=== PATIENT | female | born 1930 | race Caucasian/White ===

== ENCOUNTER 2019-02-27 10:00 | Inpatient (IN) ==
[2019-02-27] MEDS ORDERED: NS 500 ML IV ONE ×3 (10:56→16:44)
[2019-02-27] MEDS ORDERED: ZOFRAN IV ONE (10:58)
--- NOTE | 2019-02-27 11:05 | PROVIDER DOCUMENTATION ---
This chart was entered by Vicky Camacho Scribe, acting as scribe for Jennifer Wilkins MD. HPI-General Adult - General Chief Complaint: Diarrhea Stated Complaint: WEAKNESS, DIARRHEA Time Seen by Provider: 02/27/19 10:53 Source: patient Allergies/Adverse Reactions: Patient Allergies Allergy/AdvReac Type Severity Reaction Status Date / Time No Known Allergies Allergy Unverified 02/27/19 10:02 Home Medications: Home Medication List Medication Instructions Recorded Confirmed Last Taken Type Amlodipine Besylate [Norvasc] 5 mg PO DAILY 07/30/16 02/27/19 07/29/16 History Levothyroxine [Synthroid] 75 microgm PO DAILY 07/30/16 02/27/19 07/29/16 History Albuterol 2.5MG/Ipratrop 0.5MG 3 ml INH RTQ4H PRN #0 neb 08/04/16 02/27/19 Unknown Rx [Duoneb (A & A)] Lisinopril/Hydrochlorothiazide 1 tab DAILY 05/08/18 02/27/19 Unknown History [Lisinopril-Hctz 20-25 mg Tab] Acyclovir 5% Ointment [Zovirax 1 applic TOP 4XDAY 02/27/19 02/27/19 Unknown History Ointment] Bacillus Coagulans/Inulin 1 cap PO DAILY 02/27/19 02/27/19 Unknown History [Probiotic Formula Capsule] Furosemide 1 tab PO DAILY PRN 02/27/19 02/27/19 Unknown History Levofloxacin [Levaquin] 1 tab PO DAILY 02/27/19 02/27/19 Unknown History Menthol/Zinc Oxide Ointment 1 applic TOP HS 02/27/19 02/27/19 Unknown History [Calmoseptine Ointment] Potassium Chloride 1 tab PO DAILY PRN 02/27/19 02/27/19 Unknown History - History of Present Illness -Gen Adult Nature of Presenting Problems: Patient is a 88 year old female who presents to the ED via EMS with diarrhea, nausea, abdominal cramping and weakness. States symptoms have gradually worsened over a month. 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 Denies vomiting. States recently taking Levaquin. Denies urinary symptoms. Location of Pain/Injury: reports: abdomen Pain Radiation: reports: no radiation Quality of Pain: reports: cramping Severity: reports: mild Onset/Duration: reports: other (1 month) Timing: reports: still present, getting worse Associated Symptoms: reports: diarrhea, nausea, weakness Similar Symptoms Previously?: Yes Recently seen or treated by another doctor?: Yes Review of Systems - Adult - REVIEW OF SYSTEMS - ADULT Constitutional: reports: no symptoms reported. denies: chills, fever, fatique Eyes: reports: no symptoms reported Ears, Nose, Mouth & Throat: reports: no symptoms reported Cardiovascular: reports: no symptoms reported Respiratory: reports: no symptoms reported Gastrointestinal: reports: see HPI, abdominal pain, diarrhea, nausea. denies: vomiting Genitourinary: reports: no symptoms reported Musculoskeletal: reports: see HPI, muscle weakness. denies: back pain, neck pain Integumentary: reports: no symptoms reported Neurological: reports: no symptoms reported Psychiatric: reports: no symptoms reported Endocrine: reports: no symptoms reported Hematologic/Lymphatic: reports: no symptoms reported Allergic/Immunologic: reports: no symptoms reported All Other Systems: Reviewed and Negative Past History - Adult - PAST MEDICAL HISTORY-ADULT Review of Records: reports: Old Records Reviewed, Social history reviewed & non- contributory. 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 negative: lethargic - HEAD, EARS, NOSE, MOUTH & THROAT HENMT: normocephalic/atraumatic, other (dry mucous membranes). negative: angioedema - RESPIRATORY Respiratory: chest non-tender, lungs clear, normal breath sounds. negative: crackles - CARDIOVASCULAR Cardiovascular: normal peripheral pulses, regular rate, rhythm. negative: tachycardia - GASTROINTESTINAL (ABDOMEN) Abdominal Exam: normal bowel sounds, non tender, soft. negative: guarding, rigid - MUSCULOSKELETAL Extremity: normal inspection. negative: deformity, erythema - SKIN Integumentary: normal turgor, warm/dry, pallor. negative: diaphoresis, rash - PSYCHIATRIC Psych/Mental Status: normal mood/affect, oriented x 3. negative: anxious Progress - PLAN OF CARE/RESULTS Progress/Plan/Lab Results: Vital Signs - 8 hr 02/27/19 10:41 Temperature 93.5 F L Result Diagrams: 02/27/19 11:07 02/27/19 11:10 - REASSESSMENT Reassessment #1 Time Reassessed: 16:01 Status: worsening Reassessment Comment: bp dropped to 70 systolic and is p to 94 systolic after 500 bolus - XRAY 1 XRAY Study: Chest Impression: See EMR Report ( EXAM: CHEST-PORTABLE 02/27/2019 HISTORY: cough TECHNIQUE: AP portable at 1223 COMMENT: There is elevation of the right hemidiaphragm which has not changed since 05/11/2018. There is apparently less fluid in the costophrenic sulcus on the right than on the previous study. The left lower lobe is also clearer than it was. IMPRESSION: No evidence of acute disease. Electronically signed by Gennaro House 02/27/2019 12:12 PM 02/27/19 1212 Interpreting Physician: Gennaro House MD Dictated Date/Time: 02/27/19 1211 cc: Jennifer Wilkins MD; None,PCP) - CONSULTS/PCP/HOSPITALIST Notification #1 *Consult/PCP/Hospitalist*: penot Time Discussed: 16:01 Consult Disposition: Admit Departure - Departure Date of Disposition Decision: 02/27/19 Time of Disposition Decision: 16:02 DIAGNOSIS: Sepsis associated hypotension Sepsis Qualifiers: Sepsis type: sepsis due to unspecified organism Sepsis acute organ dysfunction status: without acute organ dysfunction Qualified Code(s): A41.9 - Sepsis, unspecified organism Disposition: ADMITTED INPATIENT 09 Certified Medical Emergency: Emergent Condition: Fair Referrals and Follow-Ups: None,PCP [Primary Care Provider] - - Critical Care Note This patient required my direct & personal management of CC.: Yes Total Time (mins): 50 Critical Care Statement: This patient required my direct personal management to treat or rule out processes, the absence of which, could potentiallly result in sudden, clinically significant life or limb threatening deterioration. Attestation - Physician/ DESTINEE Attestation Patient care was provided by Advanced Practice Provider:: No The physician spent face to face time with patient:: Yes Advanced Practice Provider documentation review:: Supervising physician onsite and consulted in the evaluation and care of this patient. The physician did have a face to face encounter with the patient. This chart was documented by the indicated scribe, (Vicky Camacho Scribe) and acc urately reflects the services I performed and decisions made by me, Jennifer Wilkins MD, as attested by the provider's signature.
[2019-02-27 11:21] LABS: BASO# 0.02 X1000 (0.0-0.2); BASO% 0.2 % (0.0-0.8); EOS# 0.02 X1000 (0.0-0.7); EOS% 0.2 % (0.0-10.0); HEMATOCRIT 38.5 % (37.0-47.0); HEMOGLOBIN 13.1 g/dL (12.0-16.0); IMM GRAN# 0.38 X1000 (0.0-0.04); IMM GRAN% 3.5 % (0.0-0.5); LYMPH# 0.45 X1000 (1.2-3.4); LYMPH% 4.2 % (20.5-51.1); MCH 28.7 PG (27-31); MCV 84.4 FL (81-99); MONO# 0.87 X1000 (0.11-0.59); MONO% 8.1 % (1.7-9.3); MPV 10.2 FL (7.4-10.4); NEUT% 83.8 % (42.2-75.2); PLT 186 X1000 (130-400); RBC 4.56 XMIL (4.2-5.4); RDW 15.1 % (11.5-14.5); WBC 10.74 X1000 (4.8-10.8)
[2019-02-27 11:40] LABS: ESTIMATED GFR > 60
[2019-02-27 11:41] LABS: AGAP 11; ALBUMIN 3.4 g/dL (3.5-5.0); ALKALINE PHOSPHATASE 107 U/L (32-104); BUN 9 mg/dL (8-22); CALCIUM 8.6 mg/dL (8.8-10.2); CHLORIDE 89 mmol/L (98-107); COSMO 269; CREATININE 0.3 mg/dL (0.5-0.9); GLUCOSE 103 mg/dL (70-104); GOT 18 U/L (10-30); GPT 7 U/L (10-36); LIPASE 7 U/L (13-60); POTASSIUM 3.4 mmol/L (3.5-5.1); SODIUM 135 mmol/L (136-145); TCO2 36 mmol/L (25-35); TOTAL PROTEIN 5.5 g/dL (6.3-8.3)
--- NOTE | 2019-02-27 12:14 | Diag Imaging Result Doc PS360 ---
EXAM: CHEST-PORTABLE 02/27/2019 HISTORY: cough TECHNIQUE: AP portable at 1223 COMMENT: There is elevation of the right hemidiaphragm which has not changed since 05/11/2018. There is apparently less fluid in the costophrenic sulcus on the right than on the previous study. The left lower lobe is also clearer than it was. IMPRESSION: No evidence of acute disease. Electronically signed by Gennaro House 02/27/2019 12:12 PM
[2019-02-27] MEDS ORDERED: ALBUTEROL NEB INH ONE (15:28)
[2019-02-27] MEDS ORDERED: FLAGYL PO ONE (15:28)
[2019-02-27] MEDS ORDERED: FLAGYL ONE (15:49)
[2019-02-27] MEDS ORDERED: NS 500 ML ONE (16:40)
[2019-02-27 18:52] LABS: URINE SOURCE CATH
[2019-02-27 18:53] LABS: BILIRUBIN URINE NEGATIVE (NEGATIVE); BLOOD URINE NEGATIVE (NEGATIVE); CLARITY CLEAR (CLEAR); COLOR YELLOW; GLUCOSE URINE NEGATIVE (NEGATIVE); KETONE URINE 2+(Moderate) mg/dL (NEGATIVE); LEUKOCYTES URINE NEGATIVE (NEGATIVE); NITRITE URINE NEGATIVE (NEGATIVE); PH URINE 6.5; PROTEIN URINE TRACE mg/dL (NEGATIVE); SP GRAVITY URINE 1.015; URINE BACTERIA NEGATIVE /HFP; URINE EPITHELIAL CELLS <10 /HPF (<10); URINE RBC <10 /HPF (<10); URINE WBC <10 /HPF (<10); UROBILINOGEN URINE NORMAL
--- NOTE | 2019-02-27 19:33 | HISTORY AND PHYSICAL ---
PRIMARY CARE PHYSICIAN: Dr. Kristen Lovell CHIEF COMPLAINT: Nausea, abdominal cramping, diarrhea and weakness that have progressively worsened over the past month. She was placed on Levaquin by her primary care physician during this month's time but the symptoms have not improved. HISTORY OF PRESENTING ILLNESS: This is an 88-year-old female who presents to [facility] ER via EMS with complaints of abdominal cramping, diarrhea, nausea and weakness. States that these symptoms have gradually worsened over the last month. She is noted to be a quadriplegic due to having polio. She states that when she saw her primary care during this past month, she was placed on Levaquin but symptoms have not improved. When she arrived, she was noted to be hypothermic at 93.5. Placed on a Kristel Hugger. She was also noted to be hypotensive at the lowest point was 73/45. She has received two 500 mL boluses as we are trying to go with some gentle hydration as she has a history of congestive heart failure, but when I assessed her, she was still at 84/48. So, I am going to give her another 500 mL bolus of normal saline. White count is within normal limits at 10.74. Urinalysis was negative. Chest x-ray was negative. We are going to do a CT of the abdomen and pelvis with p.o. and IV contrast. She will be admitted to the intensive care unit for further evaluation and treatment. PAST MEDICAL HISTORY: Hypothyroidism, hypertension, hypokalemia, poliomyelitis, quadriplegia, congestive heart failure and atrial fibrillation PAST SURGICAL HISTORY: None. FAMILY HISTORY: Reviewed and noncontributory. SOCIAL HISTORY: She currently resides at [facility]. Denies any tobacco, alcohol or illicit drug use. ALLERGIES: She has no known drug allergies. HOME MEDICATIONS: We are going to hold all her medications at this time and will review and restart as the patient improves. LABORATORY DATA: Showed a white blood cell count of 10.74, hemoglobin 13.1, hematocrit 38.5, platelets 186,000. Sodium 135, potassium 3.4, chloride 89, CO2 36, BUN of 9, creatinine 0.3, glucose 103. Amylase 21, lipase 7, plasma lactate 0.7. Urinalysis was negative. Chest x-ray showed no evidence of acute disease. REVIEW OF SYSTEMS: She denied any fever, chills, blurred vision, dizziness, chest pain, coughing, shortness of breath. She has had some abdominal cramping, nausea. Denied any vomiting. She has had diarrhea and denied constipation. She had some generalized weakness. Denied any burning or hurting with urination. PHYSICAL EXAMINATION: VITAL SIGNS: On arrival, she had a temperature of 93.5 degrees, pulse 75, respirations 16, blood pressure 124/101. Her blood pressure is noted to have dropped to 73/45 at 3:30 p.m. and currently after receiving two 500 mL boluses of normal saline is at 84/48, so I have ordered another 500 mL bolus of normal saline. GENERAL: This is an 88-year-old female who is lying in the bed and answers questions appropriately. Daughter is also at bedside to help answer questions. HEENT: Normocephalic, atraumatic. Normal ENT inspection. Oropharynx and nares are clear. EYES: Pupils are equal, round, and reactive to light and accommodation. Extraocular movements are intact. NECK: Normal inspection. Normal range of motion. LUNGS: Clear to auscultation bilaterally with equal lung expansion. Chest wall movement. HEART: Regular rate and rhythm. No murmurs, rubs, or gallops. ABDOMEN: Soft, nontender, nondistended. Bowel sounds are present x4 quadrants. MUSCULOSKELETAL: She has 5/5 strength x4 extremities. NEUROLOGICAL: The cranial nerves 2-12 appear grossly intact. ASSESSMENT: 1. Sepsis. 2. Hypothermia. 3. Hypotension. 4. Diarrhea. PLAN: She will be admitted to the intensive care unit. Placed on a clear liquid diet. We are going to obtain a CT of the abdomen and pelvis with p.o. and IV contrast. She is currently receiving 500 mL bolus of normal saline. She has already received a total of 1000 mL. We are going to apply SCDs. Recheck CBC and BMP in the a.m. and she remains on a Kristel Hugger. Further orders after seen by attending and reviewing of the CT of the abdomen results. Dictated by HEATHER Bailon for Laci Carroll MD cc: HEATHER Bailon MD Marlin D. Gill, MD
[2019-02-27] MEDS ORDERED: ZOFRAN IV PRN (19:40)
--- NOTE | 2019-02-27 19:51 | HISTORY AND PHYSICAL ---
ADDENDUM: Chief complaint was diarrhea, weakness, intermittent hypotension. HISTORY: The patient has had diarrhea off and on for the last month. She has had treatment for diarrhea starting about 5 days ago with Levaquin. Did not improve. Today blood pressure has dropped low into the 70s and plan is to admit her for treatment. Her exam is really unremarkable. She has a kind of a colitis type picture, so the plan will be to get a CT and stool tests and continue to follow closely. She is at an assisted living. She also has polio and chronic weakness and functionally she is basically a quadriplegic, so we will continue to follow. This is a [id number] encounter note with Katelin Allen. cc: Laci Carroll MD
[2019-02-27] MEDS: SODIUM CHLORIDE 0.9% INJ SCH (20:12)
[2019-02-27] MEDS: FLAGYL 500 MG/NS 500 MG/100 ML IVPB IV SCH (20:12)
[2019-02-27] MEDS: PROTONIX IV SCH (20:12)
[2019-02-27] MEDS: NS 1,000 ML IV SCH (20:13)
[2019-02-27] MEDS ORDERED: CALMOSEPTINE OINTMENT TOP PRN (20:25)
[2019-02-27 20:33] LABS: OCCULT BLOOD 1 NEGATIVE (NEGATIVE)
[2019-02-27] MEDS: VANCOCIN PO SCH (20:47)
--- NOTE | 2019-02-27 20:57 | Diag Imaging Result Doc PS360 ---
EXAM: CT ABD/PELVIS W/PO AND IV CON 02/27/2019 HISTORY: YODIT wilde TECHNIQUE: This exam was performed using automated exposure control, adjustment of mA or kV according to patient size, and/or use of iterative reconstruction technique. COMMENT: There are no previous abdominal studies available for comparison. Comparison is made with the previous thoracic CT of 07/31/2016 where possible. There are some apparent atelectatic changes in the costophrenic sulci which were not apparently present previously. There are cholesterol stones in the gallbladder which were demonstrated on the previous study. No evidence of acute cholecystitis is present. There are bilateral renal cysts. There is no evidence of bowel obstruction. There is a fair amount of stool in the colon. There are scattered diverticula. The aorta is not distended. The spleen is not enlarged. The liver is stable in appearance. The adrenal glands are not enlarged. 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 There is no evidence of appendicitis. There is mucosal thickening and increased mucosal enhancement in the distal sigmoid and descending colon, and rectum. There is diverticulosis in the sigmoid colon without evidence of acute diverticulitis. There is a Ulrich catheter in the bladder. There is no evidence of abscess. There is a small amount of free fluid in the pelvis. IMPRESSION: Colitis. This appears to be largely confined to the left colon, although there may be skip areas. Electronically signed by Gennaro House 02/27/2019 8:55 PM
[2019-02-27] MEDS ORDERED: DOPAMINE 800 MG/D5W 800 MG/250 ML IV.SOLN ONE (22:48)
[2019-02-27] MEDS: DOPAMINE 800 MG/D5W 800 MG/250 ML IV.SOLN IV SCH (22:57)
[2019-02-28] MEDS: FLAGYL 500 MG/NS 500 MG/100 ML IVPB IV SCH ×3 (02:10→15:10)
[2019-02-28] MEDS: VANCOCIN PO SCH ×4 (02:10→20:14)
[2019-02-28] MEDS: NS 1,000 ML IV SCH ×4 (03:34→22:51)
[2019-02-28 05:51] LABS: AGAP 9; BUN 7 mg/dL (8-22); CALCIUM 7.9 mg/dL (8.8-10.2); CHLORIDE 97 mmol/L (98-107); COSMO 269; CREATININE 0.2 mg/dL (0.5-0.9); ESTIMATED GFR > 60; GLUCOSE 89 mg/dL (70-104); POTASSIUM 3.2 mmol/L (3.5-5.1); SODIUM 136 mmol/L (136-145); TCO2 31 mmol/L (25-35)
[2019-02-28 05:52] LABS: BASO# 0.02 X1000 (0.0-0.2); BASO% 0.1 % (0.0-0.8); EOS# 0.05 X1000 (0.0-0.7); EOS% 0.5 % (0.0-10.0); HEMATOCRIT 38.9 % (37.0-47.0); HEMOGLOBIN 12.6 g/dL (12.0-16.0); IMM GRAN# 0.55 X1000 (0.0-0.04); IMM GRAN% 4.1 % (0.0-0.5); LYMPH# 0.56 X1000 (1.2-3.4); LYMPH% 4.1 % (20.5-51.1); MCH 28.6 PG (27-31); MCV 86.8 FL (81-99); MONO# 1.14 X1000 (0.11-0.59); MONO% 8.5 % (1.7-9.3); MPV 10.3 FL (7.4-10.4); NEUT# 11.06 X1000 (1.4-6.5); PLT 204 X1000 (130-400); RDW 15.3 % (11.5-14.5); WBC 13.34 X1000 (4.8-10.8)
--- NOTE | 2019-02-28 09:11 | EKG Report ---
Test Performed on : 02/27/2019 10:23:17 AM Test Reason : ER Blood Pressure : / mmHG Vent. Rate : 071 BPM Atrial Rate : 071 BPM P-R Int : 140 ms QRS Dur : 080 ms QT Int : 428 ms P-R-T Axes : -28 -26 -66 degrees QTc Int : 465 ms Normal sinus rhythm. Left ventricular hypertrophy with repolarization abnormality Abnormal ECG When compared with ECG of 08-MAY-2018 15:44, Criteria for Lateral infarct are no longer present ST now depressed in Anterior leads Inverted T waves have replaced nonspecific T wave abnormality in Inferior leads T wave inversion now evident in Anterior leads Unconfirmed Result
[2019-02-28 09:27] LABS: LYMPHS 6 % (21-51); MONO 10 % (1-9); SEGS 84 % (42-75)
[2019-02-28] MEDS: SODIUM CHLORIDE 0.9% INJ SCH (20:14)
[2019-02-28] MEDS: PROTONIX IV SCH (20:14)
[2019-02-28] MEDS: POTASSIUM CHLORIDE 20 MEQ/SWI 20 MEQ/100 ML IVPB IV SCH ×2 (20:18→22:51)
--- NOTE | 2019-02-28 20:26 | PROGRESS NOTE ---
DATE: 02/28/2019 SUBJECTIVE: Patient has no major complaints. She is a little bit more lethargic today. OBJECTIVE: Blood pressure is 105/64, heart rate of 96, respiratory rate of 14, temperature 97.3 degrees, 100% on 2 L.Cardiovascular: Regular rate and rhythm. Pulmonary: Bilateral breath sounds. Clear to auscultation. Gastrointestinal: Soft, nontender, nondistended. Bowel sounds are positive. Extremity: No clubbing or cyanosis. PROBLEM LIST: 1. Sepsis. She is still in the throes of it. She had to be started on a dopamine infusion last night, which is still going at 7 mcg/kg per minute. We will continue hydration and follow closely, but she seems a little bit better today overall. 2. Clostridium difficile colitis, which probably explains her diarrhea and is the source of her sepsis. She is on vancomycin. We will continue that treatment for the time being and follow. She had been on Flagyl, but I have since changed that. 3. Hypothermia, hypotension. Again, related to sepsis. DISPOSITION: Pending clinical status. CRITICAL CARE TIME: 32 minutes of critical care time for septic shock associated with her primary issues. cc: Laci Carroll MD
[2019-03-01] MEDS: DOPAMINE 800 MG/D5W 800 MG/250 ML IV.SOLN IV SCH ×2 (01:45→20:07)
[2019-03-01] MEDS: NS 1,000 ML IV SCH ×5 (01:55→19:52)
[2019-03-01] MEDS: VANCOCIN PO SCH ×4 (03:37→19:46)
[2019-03-01 07:18] LABS: AGAP 12; BUN 5 mg/dL (8-22); CALCIUM 7.7 mg/dL (8.8-10.2); CHLORIDE 100 mmol/L (98-107); COSMO 271; CREATININE 0.3 mg/dL (0.5-0.9); ESTIMATED GFR > 60; GLUCOSE 101 mg/dL (70-104); POTASSIUM 5.4 mmol/L (3.5-5.1); SODIUM 137 mmol/L (136-145); TCO2 25 mmol/L (25-35)
[2019-03-01 07:46] LABS: BASO# 0.06 X1000 (0.0-0.2); BASO% 0.3 % (0.0-0.8); EOS# 0.06 X1000 (0.0-0.7); EOS% 0.3 % (0.0-10.0); HEMATOCRIT 40.9 % (37.0-47.0); HEMOGLOBIN 13.3 g/dL (12.0-16.0); IMM GRAN# 0.45 X1000 (0.0-0.04); IMM GRAN% 2.4 % (0.0-0.5); LYMPH# 0.74 X1000 (1.2-3.4); MCHC 32.5 g/dL (33-37); MCV 89.3 FL (81-99); MONO# 1.35 X1000 (0.11-0.59); MONO% 7.3 % (1.7-9.3); MPV 9.6 FL (7.4-10.4); NEUT# 15.77 X1000 (1.4-6.5); NEUT% 85.7 % (42.2-75.2); PLT 196 X1000 (130-400); RBC 4.58 XMIL (4.2-5.4); RDW 16.1 % (11.5-14.5); WBC 18.43 X1000 (4.8-10.8)
[2019-03-01 11:02] LABS: BANDS 1 % (0-1); LYMPHS 12 % (21-51); MONO 5 % (1-9); SEGS 82 % (42-75)
[2019-03-01] MEDS: DIFICID PO SCH ×2 (14:22→20:05)
[2019-03-01] MEDS ORDERED: ALBUMIN 25% IV ONE (14:52)
[2019-03-01] MEDS: LASIX IV SCH (15:17)
[2019-03-01] MEDS: TYLENOL PO PRN (15:26)
[2019-03-01 17:53] LABS: AGAP 7; BUN 5 mg/dL (8-22); CALCIUM 8.2 mg/dL (8.8-10.2); CHLORIDE 97 mmol/L (98-107); COSMO 279; CREATININE 0.3 mg/dL (0.5-0.9); ESTIMATED GFR > 60; GLUCOSE 136 mg/dL (70-104); MAGNESIUM 1.3 mg/dL (1.5-2.7); POTASSIUM 3.6 mmol/L (3.5-5.1); SODIUM 140 mmol/L (136-145); TCO2 36 mmol/L (25-35)
[2019-03-01] MEDS ORDERED: MAGNESIUM SULFATE 2 GM/S.W.I. 2 GM/50 ML IVPB IV ONE (18:18)
[2019-03-01 18:42] LABS: BE 11.1 mmoll (-3.0-3.0); BLOOD TYPE ARTERIAL; HCO3-(ACT) 33.5 mmoll (20.0-26.0); METHB 1.3 % (0.0-1.5); O2(CT) 18.1 mL/dL (15.0-23.0); O2HB 94.4 % (95.0-99.0); PO2(98.6) 93 mmHg (60-100); SAMPLE BLOOD; SAO2 96.8 % (95.0-100.0); THB 13.6 g/dL (11.5-17.4); pH(98.6) 7.24 (7.35-7.45)
[2019-03-01 18:49] LABS: ALLEN TEST YES; MODALITY CANNULA; PCO2(98.6) 100 mmHg (35-45)
[2019-03-01] MEDS: PROTONIX IV SCH (19:46)
[2019-03-02] MEDS: VANCOCIN PO SCH ×4 (01:18→19:29)
[2019-03-02] MEDS: LASIX IV SCH (02:12)
[2019-03-02 07:10] LABS: BASO# 0.04 X1000 (0.0-0.2); BASO% 0.2 % (0.0-0.8); EOS# 0.11 X1000 (0.0-0.7); EOS% 0.6 % (0.0-10.0); HEMATOCRIT 41.9 % (37.0-47.0); HEMOGLOBIN 13.3 g/dL (12.0-16.0); IMM GRAN# 0.21 X1000 (0.0-0.04); IMM GRAN% 1.1 % (0.0-0.5); LYMPH# 0.62 X1000 (1.2-3.4); LYMPH% 3.3 % (20.5-51.1); MCH 28.6 PG (27-31); MCHC 31.7 g/dL (33-37); MCV 90.1 FL (81-99); MONO# 1.61 X1000 (0.11-0.59); MONO% 8.5 % (1.7-9.3); MPV 9.8 FL (7.4-10.4); NEUT# 16.42 X1000 (1.4-6.5); NEUT% 86.3 % (42.2-75.2); PLT 184 X1000 (130-400); RBC 4.65 XMIL (4.2-5.4); RDW 16.2 % (11.5-14.5); WBC 19.01 X1000 (4.8-10.8)
[2019-03-02 07:21] LABS: AGAP 10; BUN 5 mg/dL (8-22); CALCIUM 8.1 mg/dL (8.8-10.2); CHLORIDE 90 mmol/L (98-107); COSMO 277; CREATININE 0.3 mg/dL (0.5-0.9); ESTIMATED GFR > 60; GLUCOSE 106 mg/dL (70-104); POTASSIUM 3.3 mmol/L (3.5-5.1); SODIUM 140 mmol/L (136-145); TCO2 40 mmol/L (25-35)
[2019-03-02 07:32] LABS: BANDS 2 % (0-1); LYMPHS 3 % (21-51); MONO 5 % (1-9); SEGS 89 % (42-75)
[2019-03-02 07:33] LABS: ANISOCYTOSIS OCCASIONAL; HYPOCHROM OCCASIONAL
[2019-03-02 08:43] LABS: BE 24.2 mmoll (-3.0-3.0); BLOOD TYPE ARTERIAL; HCO3-(ACT) 43.7 mmoll (20.0-26.0); METHB 1.1 % (0.0-1.5); O2(CT) 19.7 mL/dL (15.0-23.0); O2HB 95.1 % (95.0-99.0); PCO2(98.6) 29 mmHg (35-45); PO2(98.6) 91 mmHg (60-100); SAMPLE BLOOD; SAO2 96.9 % (95.0-100.0); THB 14.7 g/dL (11.5-17.4)
[2019-03-02 08:46] LABS: MODALITY BI PAP
[2019-03-02 08:47] LABS: ALLEN TEST YES
[2019-03-02 08:51] LABS: pH(98.6) 7.79 (7.35-7.45)
[2019-03-02 09:56] LABS: URINE SOURCE CATH
[2019-03-02] MEDS: DIFICID PO SCH ×2 (09:56→20:11)
[2019-03-02 10:09] LABS: BILIRUBIN URINE NEGATIVE (NEGATIVE); BLOOD URINE NEGATIVE (NEGATIVE); CLARITY CLEAR (CLEAR); COLOR YELLOW; GLUCOSE URINE NEGATIVE (NEGATIVE); KETONE URINE 1+(Small) mg/dL (NEGATIVE); LEUKOCYTES URINE TRACE (NEGATIVE); NITRITE URINE NEGATIVE (NEGATIVE); PROTEIN URINE NEGATIVE (NEGATIVE); UROBILINOGEN URINE NORMAL
[2019-03-02 10:10] LABS: URINE BACTERIA NEGATIVE /HFP; URINE CAST NONE SEEN /LPF; URINE CRYSTAL NONE SEEN /HPF; URINE EPITHELIAL CELLS <10 /HPF (<10); URINE RBC <10 /HPF (<10); URINE WBC <10 /HPF (<10); URINE YEAST NONE SEEN /HPF
--- NOTE | 2019-03-02 11:49 | Diag Imaging Result Doc PS360 ---
EXAM: CHEST-PORTABLE INDICATION: elevated wbc TECHNIQUE: One view COMPARISON: 02/27/2019 FINDINGS: There is stable elevation of the right hemidiaphragm. There is probably trace fluid in the right costophrenic sulcus that is stable. No new consolidation is identified. Cardiac silhouette is stable. IMPRESSION: Essentially stable chest. Electronically signed by Pedro Stapleton 03/02/2019 11:47 AM
--- NOTE | 2019-03-02 12:18 | PROGRESS NOTE ---
DATE: 03/02/2019 SUBJECTIVE: Patient is doing well. OBJECTIVE: Blood pressure 133/81, heart rate of 96, respiratory rate 19, temperature 98.4 degrees, 99% on 2 L.Cardiovascular: Regular rate and rhythm. Pulmonary: Bilateral breath sounds, clear to auscultation. GI: Soft, nontender, nondistended. Bowel sounds are positive. LABORATORY DATA: White count 19, which it was 18 yesterday, 0.4 so that is not a big jump. Hemoglobin and hematocrit is 13 and 41, platelets 184,000. PH 7.79, pCO2 29, PO2 91. Potassium is 3. UA was okay. Chest x-ray shows elevated diaphragm on the right side, but I am not entirely sure that is not new. She has a persistently elevated diaphragm on the right side. She may have a little interstitial infiltrates, but I do not see any clear infiltrates, especially compared to her last x-ray which was on the . I do not see any new per se infiltrates. Will see what the radiology report is. Again, I am adverse to giving her other antibiotics because she does have the C. difficile. OBJECTIVE: 133/81, heart rate 96, respiratory rate 19, temperature 98.4 degrees, 99% on 2 L. Regular rate and rhythm.Pulmonary: Bilateral breath sounds, diminished at the bases. GI: Soft, nontender, nondistended. Bowel sounds are positive. LABORATORY DATA: White count 19, hemoglobin and hematocrit 13 and 41, platelets 184,000. PROBLEM LIST: 1. Acute hypercapnic respiratory failure. I think this is related to just her polio and kind of hypoventilation from polio. She may have some sort of restrictive lung disease associated. She improved very quickly with treatment which included BiPAP and will use that as needed. 2. Sepsis. She is still on dopamine, which we had a difficult time getting her off of that. I am going to cut down her diuretics because she seems a little bit better. 3. Clostridium difficile colitis. Diarrhea has essentially resolved. She is on vancomycin and Dificid and we will continue to monitor. 4. Leukocytosis. It does not clearly look like she has a UTI. She has no pneumonia. 5. Chronic polio with quadriplegia. We are aware. We will get PT to start working with her at least some passive. She is able to shift, but I do not think she ambulates or anything to that effect. DISPOSITION: We are going to have to look at long-term care for her, so we will continue to monitor. We will continue critical care because she is on dopamine. She was screened for adrenal insufficiency previously. She had a good response. She doubled her cortisol level without any difficulty, so that is no problem there. I do not think she is adrenally insufficient. We will continue to follow closely. cc: Laci Carroll MD
[2019-03-02] MEDS ORDERED: KLOR-CON PO ONE (16:03)
[2019-03-02] MEDS: CLINIMIX E 4.25%-5% SOLUTION 1,000 ML IV SCH (16:20)
[2019-03-02] MEDS: PROTONIX IV SCH (19:29)
[2019-03-02] MEDS: DOPAMINE 800 MG/D5W 800 MG/250 ML IV.SOLN IV SCH (19:29)
[2019-03-03] MEDS: VANCOCIN PO SCH ×4 (01:27→19:29)
[2019-03-03 08:04] LABS: BASO# 0.02 X1000 (0.0-0.2); BASO% 0.1 % (0.0-0.8); EOS# 0.09 X1000 (0.0-0.7); EOS% 0.5 % (0.0-10.0); HEMATOCRIT 40.6 % (37.0-47.0); HEMOGLOBIN 13.1 g/dL (12.0-16.0); IMM GRAN# 0.14 X1000 (0.0-0.04); IMM GRAN% 0.7 % (0.0-0.5); LYMPH# 0.89 X1000 (1.2-3.4); LYMPH% 4.7 % (20.5-51.1); MCH 28.7 PG (27-31); MCHC 32.3 g/dL (33-37); MCV 88.8 FL (81-99); MONO% 5.8 % (1.7-9.3); MPV 9.7 FL (7.4-10.4); NEUT# 16.62 X1000 (1.4-6.5); NEUT% 88.2 % (42.2-75.2); PLT 160 X1000 (130-400); RBC 4.57 XMIL (4.2-5.4); RDW 15.6 % (11.5-14.5); WBC 18.86 X1000 (4.8-10.8)
[2019-03-03] MEDS: DIFICID PO SCH ×2 (08:05→20:00)
[2019-03-03 08:14] LABS: AGAP 3; BUN 7 mg/dL (8-22); CALCIUM 8.8 mg/dL (8.8-10.2); CHLORIDE 86 mmol/L (98-107); COSMO 267; CREATININE 0.2 mg/dL (0.5-0.9); ESTIMATED GFR > 60; GLUCOSE 146 mg/dL (70-104); MAGNESIUM 1.5 mg/dL (1.5-2.7); POTASSIUM 3.9 mmol/L (3.5-5.1); SODIUM 133 mmol/L (136-145); TCO2 44 mmol/L (25-35)
[2019-03-03 08:36] LABS: LYMPHS 1 % (21-51); MONO 11 % (1-9); SEGS 88 % (42-75)
[2019-03-03] MEDS ORDERED: LASIX IV SCH (09:00)
[2019-03-03] MEDS: CLINIMIX E 4.25%-5% SOLUTION 1,000 ML IV SCH (10:11)
[2019-03-03] MEDS ORDERED: ALBUMIN 25% IV ONE (13:00)
--- NOTE | 2019-03-03 14:07 | PROGRESS NOTE ---
DATE: 03/03/2019 SUBJECTIVE: Patient has no major complaints. OBJECTIVE: Vital Signs: Blood pressure 132/69, heart rate of 86, respiratory rate of 13, temperature 98.4 degrees. Cardiovascular: Regular rate and rhythm. Pulmonary: Bilateral breath sounds clear to auscultation. GI: Soft, nontender, nondistended. Bowel sounds are positive. DIAGNOSTIC DATA: White count has dropped a hair to 18.8, hemoglobin and hematocrit 40 and 88, platelets 160,000. Sodium 133. BUN and creatinine are 7 and 0.2. Ins and outs: She is negative about 2.8 L yesterday. She has put out about 10 L total, and her inputs have only been 2925. PROBLEM LIST: 1. Acute hypercapnic respiratory failure secondary to polio and hypoventilation. She is improved on BiPAP and seems to be doing okay. I think she will benefit from pulmonary function test when more stable. 2. Sepsis associated with Clostridium difficile colitis. We will continue treatment which is vancomycin and Dificid. She has been on vancomycin for 5 days and Dificid she has been on for 3 days. 3. Leukocytosis, most likely associated with Clostridium difficile. It is slowly improving. 4. Poliomyelitis with effective near quadriplegia. I will continue PT evaluation and follow. DISPOSITION: Waiting for her to get off dopamine before we can progress further. She is a bit volume overloaded, but I think that is associated with hypoalbuminemia. We will continue to follow. cc: Laci Carroll MD
[2019-03-03] MEDS: DOPAMINE 800 MG/D5W 800 MG/250 ML IV.SOLN IV SCH (16:31)
[2019-03-03] MEDS: TYLENOL PO PRN (19:30)
[2019-03-04] MEDS: VANCOCIN PO SCH ×4 (01:09→20:16)
[2019-03-04] MEDS: LOVENOX SUBQ SCH (05:13)
[2019-03-04] MEDS: CLINIMIX E 4.25%-5% SOLUTION 1,000 ML IV SCH (05:13)
[2019-03-04] MEDS: PRILOSEC PO SCH (06:55)
[2019-03-04 07:26] LABS: PLT 159 X1000 (130-400)
[2019-03-04 07:27] LABS: BASO# 0.13 X1000 (0.0-0.2); BASO% 0.9 % (0.0-0.8); EOS# 0.22 X1000 (0.0-0.7); EOS% 1.6 % (0.0-10.0); IMM GRAN# 0.13 X1000 (0.0-0.04); IMM GRAN% 0.9 % (0.0-0.5); LYMPH# 1.07 X1000 (1.2-3.4); LYMPH% 7.7 % (20.5-51.1); MCH 29.4 PG (27-31); MCHC 32.5 g/dL (33-37); MCV 90.5 FL (81-99); MONO# 1.09 X1000 (0.11-0.59); MONO% 7.9 % (1.7-9.3); MPV 10.1 FL (7.4-10.4); NEUT# 11.24 X1000 (1.4-6.5); RBC 4.42 XMIL (4.2-5.4); RDW 16.1 % (11.5-14.5); WBC 13.88 X1000 (4.8-10.8)
[2019-03-04 08:26] LABS: AGAP 10; BUN 10 mg/dL (8-22); CHLORIDE 85 mmol/L (98-107); COSMO 268; CREATININE < 0.2 mg/dL (0.5-0.9); GLUCOSE 114 mg/dL (70-104); POTASSIUM 4.1 mmol/L (3.5-5.1); SODIUM 134 mmol/L (136-145); TCO2 39 mmol/L (25-35)
[2019-03-04] MEDS ORDERED: LASIX IV SCH (09:00)
[2019-03-04] MEDS: DIFICID PO SCH ×2 (10:22→20:16)
[2019-03-04] MEDS ORDERED: ALBUMIN 25% IV ONE (11:32)
[2019-03-04 11:55] LABS: LYMPHS 8 % (21-51); MONO 7 % (1-9); SEGS 85 % (42-75)
[2019-03-04] MEDS: NS 500 ML IV SCH ×2 (12:21→14:39)
[2019-03-04] MEDS: DOPAMINE 800 MG/D5W 800 MG/250 ML IV.SOLN IV SCH (20:17)
[2019-03-05] MEDS: CLINIMIX E 4.25%-5% SOLUTION 1,000 ML IV SCH ×2 (02:21→22:18)
[2019-03-05] MEDS: VANCOCIN PO SCH ×4 (02:22→20:51)
[2019-03-05] MEDS: LOVENOX SUBQ SCH (05:48)
[2019-03-05] MEDS ORDERED: CORTROSYN IV ONE (06:00)
[2019-03-05] MEDS: PRILOSEC PO SCH (06:15)
[2019-03-05 09:20] LABS: BASO# 0.01 X1000 (0.0-0.2); BASO% 0.1 % (0.0-0.8); EOS# 0.04 X1000 (0.0-0.7); EOS% 0.4 % (0.0-10.0); HEMATOCRIT 36.8 % (37.0-47.0); HEMOGLOBIN 11.8 g/dL (12.0-16.0); IMM GRAN# 0.09 X1000 (0.0-0.04); IMM GRAN% 0.9 % (0.0-0.5); LYMPH# 0.52 X1000 (1.2-3.4); LYMPH% 5.1 % (20.5-51.1); MCH 28.2 PG (27-31); MCHC 32.1 g/dL (33-37); MONO# 0.42 X1000 (0.11-0.59); MONO% 4.1 % (1.7-9.3); MPV 9.6 FL (7.4-10.4); NEUT# 9.13 X1000 (1.4-6.5); NEUT% 89.4 % (42.2-75.2); PLT 134 X1000 (130-400); RBC 4.18 XMIL (4.2-5.4); RDW 15.1 % (11.5-14.5); WBC 10.21 X1000 (4.8-10.8)
[2019-03-05] MEDS: LASIX PO SCH (09:20)
[2019-03-05] MEDS: DIFICID PO SCH ×2 (09:21→20:51)
[2019-03-05 09:22] LABS: AGAP 6; BUN 17 mg/dL (8-22); CALCIUM 9.4 mg/dL (8.8-10.2); CHLORIDE 86 mmol/L (98-107); COSMO 269; CREATININE 0.2 mg/dL (0.5-0.9); ESTIMATED GFR > 60; GLUCOSE 192 mg/dL (70-104); MAGNESIUM 1.6 mg/dL (1.5-2.7); POTASSIUM 3.8 mmol/L (3.5-5.1); SODIUM 131 mmol/L (136-145); TCO2 39 mmol/L (25-35)
[2019-03-05 09:51] LABS: ANISOCYTOSIS 1+; BANDS 2 % (0-1); LYMPHS 9 % (21-51); MONO 3 % (1-9); SEGS 86 % (42-75)
[2019-03-06] MEDS: VANCOCIN PO SCH ×4 (01:40→21:34)
[2019-03-06] MEDS: LOVENOX SUBQ SCH (05:27)
[2019-03-06] MEDS: PRILOSEC PO SCH (06:05)
[2019-03-06 06:23] LABS: BASO# 0.01 X1000 (0.0-0.2); BASO% 0.1 % (0.0-0.8); EOS# 0.09 X1000 (0.0-0.7); EOS% 1.1 % (0.0-10.0); HEMATOCRIT 33.8 % (37.0-47.0); HEMOGLOBIN 11.2 g/dL (12.0-16.0); IMM GRAN# 0.14 X1000 (0.0-0.04); IMM GRAN% 1.6 % (0.0-0.5); LYMPH# 0.62 X1000 (1.2-3.4); LYMPH% 7.3 % (20.5-51.1); MCH 28.4 PG (27-31); MCHC 33.1 g/dL (33-37); MCV 85.6 FL (81-99); MONO# 0.74 X1000 (0.11-0.59); MONO% 8.7 % (1.7-9.3); MPV 10.2 FL (7.4-10.4); NEUT# 6.89 X1000 (1.4-6.5); NEUT% 81.2 % (42.2-75.2); PLT 176 X1000 (130-400); RBC 3.95 XMIL (4.2-5.4); RDW 14.9 % (11.5-14.5); WBC 8.49 X1000 (4.8-10.8)
[2019-03-06 06:31] LABS: ESTIMATED GFR > 60
[2019-03-06 06:33] LABS: AGAP 6; ALBUMIN 3.3 g/dL (3.5-5.0); BUN 20 mg/dL (8-22); CALCIUM 8.7 mg/dL (8.8-10.2); CHLORIDE 85 mmol/L (98-107); COSMO 264; CREATININE 0.2 mg/dL (0.5-0.9); GLUCOSE 106 mg/dL (70-104); PHOSPHORUS 3.5 mg/dL (2.7-4.5); POTASSIUM 3.9 mmol/L (3.5-5.1); SODIUM 130 mmol/L (136-145); TCO2 40 mmol/L (25-35)
[2019-03-06] MEDS: DIFICID PO SCH ×2 (08:28→21:34)
[2019-03-06] MEDS: LASIX PO SCH (08:28)
--- NOTE | 2019-03-06 13:58 | PROGRESS NOTE ---
DATE: 03/05/2019 SUBJECTIVE: The patient notes that she feels a lot better, although states she is still weak and fatigued. Denies any chest pain or palpitations. PHYSICAL EXAMINATION: Temperature 97, pulse 18 respiratory rate 20, BP is 110/69, currently off of dopamine. HEENT: Normocephalic. Neck: Supple. Cardiovascular: Regular rate. Chest: Clear. Abdomen: Soft. Extremities: Moves all extremities. ASSESSMENT: 1. Acute hypercapnic respiratory failure, improved. 2. Hypoventilation, improved. 3. Sepsis with Clostridium difficile colitis, improved. Currently on vancomycin and Dificid. 4. Leukocytosis, improved. 5. Hypotension, resolved. PLAN: Given that patient was still on dopamine until 1 a.m. this morning, we are going to leave her in the ICU. We will continue to follow. Hopefully, she can transition to the floor tomorrow and then possibly to rehab the next day. cc: Goldy Cortez MD
[2019-03-06] MEDS: CLINIMIX E 4.25%-5% SOLUTION 1,000 ML IV SCH (17:15)
--- NOTE | 2019-03-06 22:30 | PROGRESS NOTE ---
DATE: 03/06/2019 SUBJECTIVE: Patient notes that she feels a lot better. Denies any fevers or chills. States she is still very weak and fatigued. States she wants to get out of bed but she is unable to do it without assistance. PHYSICAL EXAMINATION: Vital Signs: Temperature 97.6, pulse 69, respiratory rate 18, BP low at 97/54. General: Patient is awake, very pleasant. She is in no respiratory distress. HEENT: Normocephalic. Neck: Supple. Cardiovascular: Regular rate. Chest: Clear. Abdomen: Soft. Extremities: Moves all extremities. Neurologic: No changes. ASSESSMENT: 1. Hypotension, stable. 2. Sepsis, resolved. 3. Clostridium difficile colitis, stable. 4. Leukocytosis, improved. 5. Hyponatremia. 6. Adult failure to thrive with generalized weakness. 7. Poliomyelitis. 8. Acute hypercapnic respiratory failure. PLAN: We will continue patient in the hospital, although at this point, we are going to transition her from the ICU to the floor. We will get physical therapy involved. Continue current medications. Hopefully, she can transition to rehab over the next 1 or 2 days. cc: Goldy Cortez MD
[2019-03-07] MEDS: VANCOCIN PO SCH ×4 (02:13→20:30)
[2019-03-07] MEDS: PRILOSEC PO SCH ×2 (05:49→08:37)
[2019-03-07] MEDS: LOVENOX SUBQ SCH (05:49)
[2019-03-07 06:35] LABS: BASO# 0.01 X1000 (0.0-0.2); BASO% 0.1 % (0.0-0.8); EOS% 0.8 % (0.0-10.0); HEMATOCRIT 34.2 % (37.0-47.0); HEMOGLOBIN 11.5 g/dL (12.0-16.0); IMM GRAN# 0.13 X1000 (0.0-0.04); LYMPH# 0.66 X1000 (1.2-3.4); LYMPH% 5.3 % (20.5-51.1); MCH 28.4 PG (27-31); MCHC 33.6 g/dL (33-37); MCV 84.4 FL (81-99); MONO# 0.95 X1000 (0.11-0.59); MONO% 7.6 % (1.7-9.3); MPV 10.2 FL (7.4-10.4); NEUT# 10.61 X1000 (1.4-6.5); NEUT% 85.2 % (42.2-75.2); PLT 203 X1000 (130-400); RBC 4.05 XMIL (4.2-5.4); RDW 14.5 % (11.5-14.5); WBC 12.46 X1000 (4.8-10.8)
[2019-03-07 06:36] LABS: LYMPHS 5 % (21-51); MONO 7 % (1-9); SEGS 88 % (42-75)
[2019-03-07 06:53] LABS: ESTIMATED GFR > 60
[2019-03-07 07:02] LABS: AGAP 6; ALBUMIN 3.4 g/dL (3.5-5.0); BUN 22 mg/dL (8-22); CALCIUM 8.6 mg/dL (8.8-10.2); CHLORIDE 83 mmol/L (98-107); COSMO 257; CREATININE 0.2 mg/dL (0.5-0.9); GLUCOSE 109 mg/dL (70-104); PHOSPHORUS 4.3 mg/dL (2.7-4.5); POTASSIUM 4.3 mmol/L (3.5-5.1); SODIUM 126 mmol/L (136-145); TCO2 36 mmol/L (25-35)
[2019-03-07] MEDS ORDERED: NS 1,000 ML IV SCH (10:00)
[2019-03-07] MEDS: DIFICID PO SCH ×2 (10:05→20:30)
--- NOTE | 2019-03-08 00:22 | PROGRESS NOTE ---
DATE: 03/07/2019 SUBJECTIVE: Patient notes that she is feeling a little bit better. She is eating better. Still has not been out of bed. Still very weak, fatigued and tired. Denies any fevers or chills. PHYSICAL EXAMINATION: Vital Signs: Temperature 97.9 degrees, pulse 69, respiratory rate 18, BP 97/54. General: Patient is an elderly female who currently is in no respiratory distress. She is lying in the bed. HEENT: Normocephalic. Neck: Supple. Cardiovascular: Regular rate. Chest: Clear. Abdomen: Soft. Extremities: Moves all extremities. ASSESSMENT: 1. Acute hypercapnic respiratory failure, appears improved. 2. Sepsis secondary to Clostridium difficile colitis. 3. Clostridium difficile colitis. 4. Hyponatremia. Sodium has actually dropped from 130 down to 126, but she has been on Lasix. We are going to stop her Lasix and give her 500 mL of normal saline. Recheck in the a.m. cc: Goldy Cortez MD
[2019-03-08] MEDS: VANCOCIN PO SCH ×4 (01:18→21:46)
[2019-03-08] MEDS: LOVENOX SUBQ SCH (06:28)
[2019-03-08] MEDS: PRILOSEC PO SCH (06:28)
[2019-03-08 07:16] LABS: BASO# 0.01 X1000 (0.0-0.2); BASO% 0.1 % (0.0-0.8); EOS# 0.11 X1000 (0.0-0.7); EOS% 1.3 % (0.0-10.0); HEMATOCRIT 32.3 % (37.0-47.0); HEMOGLOBIN 10.7 g/dL (12.0-16.0); IMM GRAN# 0.08 X1000 (0.0-0.04); LYMPH# 0.67 X1000 (1.2-3.4); LYMPH% 8.2 % (20.5-51.1); MCH 28.3 PG (27-31); MCHC 33.1 g/dL (33-37); MCV 85.4 FL (81-99); MONO# 0.83 X1000 (0.11-0.59); MONO% 10.1 % (1.7-9.3); MPV 9.9 FL (7.4-10.4); NEUT# 6.51 X1000 (1.4-6.5); NEUT% 79.3 % (42.2-75.2); PLT 257 X1000 (130-400); RBC 3.78 XMIL (4.2-5.4); RDW 14.7 % (11.5-14.5); WBC 8.21 X1000 (4.8-10.8)
[2019-03-08 07:35] LABS: AGAP 6; ALBUMIN 3.4 g/dL (3.5-5.0); BUN 15 mg/dL (8-22); CALCIUM 8.4 mg/dL (8.8-10.2); CHLORIDE 90 mmol/L (98-107); COSMO 263; CREATININE 0.2 mg/dL (0.5-0.9); ESTIMATED GFR > 60; GLUCOSE 85 mg/dL (70-104); PHOSPHORUS 3.6 mg/dL (2.7-4.5); SODIUM 131 mmol/L (136-145); TCO2 34 mmol/L (25-35)
[2019-03-08] MEDS: DIFICID PO SCH ×2 (10:29→21:46)
--- NOTE | 2019-03-08 17:42 | PROGRESS NOTE ---
DATE: 03/08/2019 SUBJECTIVE: The patient notes that she is feeling okay. Still tired and fatigued. Notes that she has been eating a lot better. Still having some abdominal pain, but her diarrhea has improved. OBJECTIVE: Vital Signs: Reviewed. Temperature 97.9 degrees, pulse 69, respiratory rate 18. Blood pressure low, but stable. ASSESSMENT: 1. Clostridium difficile colitis. Her most recent Clostridium difficile test was still positive. We will continue p.o. vancomycin and follow. 2. Adult failure to thrive. She will need rehab once a private room can be obtained. 3. Sepsis, resolved. 4. Leukocytosis, improved. 5. Hyponatremia, improved at 131. PLAN: We will continue patient in the hospital, continue physical therapy, continue to follow. Further orders as needed. cc: Goldy Cortez MD
[2019-03-09] MEDS: VANCOCIN PO SCH ×4 (02:29→22:08)
[2019-03-09] MEDS: LOVENOX SUBQ SCH (06:07)
[2019-03-09] MEDS: PRILOSEC PO SCH (06:07)
[2019-03-09] MEDS: DIFICID PO SCH ×2 (08:25→22:09)
--- NOTE | 2019-03-09 17:25 | PROGRESS NOTE ---
DATE: 03/09/2019 SUBJECTIVE: Patient denies any new complaints. States she is still fatigued and still feels chilled. Denies chest pain, palpitation. Denies any diarrhea currently. PHYSICAL EXAM: VITAL SIGNS: Temperature 98.4, pulse 75, respiratory 18, BP 121/67. General: The patient is an elderly female who is in no respiratory distress. She is quite frail in overall appearance but in no respiratory distress. HEENT: Normocephalic. Neck: Supple. CV: Regular rate. Chest: Clear. Abdomen: Soft diffusely but minimally tender. Extremities: Moves all extremities. ASSESSMENT: 1. Clostridium difficile colitis. Her most recent Clostridium difficile test was positive. We are going to recheck again in the a.m. We will continue vancomycin. 2. Sepsis from Clostridium difficile. 3. Hypotension appears resolved last blood pressures are improved to 121/67. 4. Hypothermia appears improved. Most recent blood pressure was 98. 5. Adult failure to thrive with generalized weakness. PLAN: Continue vancomycin, continue physical therapy. Hopefully she can get to rehab. cc: Goldy Cortez MD
[2019-03-10] MEDS: VANCOCIN PO SCH ×4 (05:57→21:30)
[2019-03-10] MEDS: LOVENOX SUBQ SCH (06:56)
[2019-03-10] MEDS: DIFICID PO SCH ×2 (09:34→21:30)
--- NOTE | 2019-03-10 17:58 | PROGRESS NOTE ---
DATE: 03/10/2019 SUBJECTIVE: Patient notes she still feels chilled. Denies any shortness of breath. Denies any palpitations. Denies any recent diarrhea. PHYSICAL EXAMINATION: Vital Signs: Temperature 97.6 degrees, pulse 70, respiratory 20, BP 128/74. General: Patient is awake, currently in no distress. HEENT: Normocephalic. Neck: Supple. Cardiovascular: Regular rate. Chest: Clear. Abdomen: Soft, nondistended, diffusely minimally tender. ASSESSMENT: 1. Sepsis, resolved. 2. Clostridium difficile colitis, still problematic. Repeat Clostridium difficile is pending. 3. Leukocytosis. 4. 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 PLAN: We will continue patient in the hospital. Continue physical therapy. Symptomatic control and will follow. cc: Goldy Cortez MD
[2019-03-10] MEDS: PRILOSEC PO SCH (21:30)
[2019-03-10] MEDS: TYLENOL PO PRN (22:57)
[2019-03-11] MEDS: LOVENOX SUBQ SCH (05:14)
[2019-03-11] MEDS: VANCOCIN PO SCH ×4 (05:14→21:02)
[2019-03-11] MEDS: PRILOSEC PO SCH ×2 (05:14→06:10)
[2019-03-11 06:44] LABS: AGAP 8; ALBUMIN 3.5 g/dL (3.5-5.0); ALKALINE PHOSPHATASE 124 U/L (32-104); BUN 7 mg/dL (8-22); CALCIUM 8.7 mg/dL (8.8-10.2); CHLORIDE 93 mmol/L (98-107); COSMO 259; CREATININE 0.2 mg/dL (0.5-0.9); ESTIMATED GFR > 60; GLUCOSE 77 mg/dL (70-104); GOT 32 U/L (10-30); GPT 18 U/L (10-36); MAGNESIUM 1.8 mg/dL (1.5-2.7); SODIUM 131 mmol/L (136-145); TCO2 30 mmol/L (25-35); TOTAL PROTEIN 6.2 g/dL (6.3-8.3)
[2019-03-11 06:55] LABS: HEMATOCRIT 32.6 % (37.0-47.0); HEMOGLOBIN 10.7 g/dL (12.0-16.0); MCH 28.4 PG (27-31); MCHC 32.8 g/dL (33-37); MCV 86.5 FL (81-99); MPV 9.5 FL (7.4-10.4); RBC 3.77 XMIL (4.2-5.4); WBC 6.3 X1000 (4.8-10.8)
[2019-03-11] MEDS: DIFICID PO SCH ×2 (10:23→21:02)
[2019-03-11] MEDS ORDERED: BLISTEX MEDICATED BERRY LIP BALM TOP ONE (10:36)
[2019-03-12] MEDS: VANCOCIN PO SCH ×4 (02:19→19:34)
[2019-03-12] MEDS: LOVENOX SUBQ SCH (06:41)
[2019-03-12] MEDS: PRILOSEC PO SCH (06:41)
[2019-03-12] MEDS ORDERED: SYNTHROID PO SCH (07:00)
--- NOTE | 2019-03-12 07:34 | PROGRESS NOTE ---
DATE: 03/11/2019 SUBJECTIVE: Patient is still tired and fatigued, still does not want to move very much. OBJECTIVE: Temperature 97.6, although she does have occasional low temperatures, currently has a Krsitel Hugger on. Pulse 70, respiratory 18, BP 128/70.General: Patient is in no respiratory distress. She is pleasant, calm, lying flatly in bed. HEENT: Normocephalic. Neck: Supple. Cardiovascular: Regular rate. Chest: Clear. Abdomen: Soft, nondistended. Minimal tenderness. Extremities: Moves all extremities. ASSESSMENT: 1. Clostridium difficile colitis. Her most recent C diff was still positive. She currently is being treated. 2. Sepsis resolved. 3. Hypothermia, improved. 4. Leukocytosis. 5. Hyponatremia improved. PLAN: We will continue patient in the hospital. She will need rehab upon discharge. Continue treatment for her C. difficile. Her diarrhea has dramatically improved. cc: Goldy Cortez MD
[2019-03-12] MEDS: DIFICID PO SCH (10:02)
--- NOTE | 2019-03-12 11:54 | PROGRESS NOTE ---
DATE: 03/12/2019 SUBJECTIVE: The patient reports still feeling tired but no more episodes of diarrhea. She denies any fever or chills. OBJECTIVE: Vital Signs: Temperature 97.4 degrees, heart rate 67, respiratory rate 18, blood pressure 124/66, O2 saturation 100% on room air. General Examination: This is an 88-year-old, female, lying in bed, in no acute distress. Cardiovascular Examination: S1 and S2 heard. No murmurs, gallops, or rubs. Regular rate and rhythm. Respiratory Examination: Clear bilaterally to auscultation. No work of breathing or using accessory muscles. Abdomen: Soft, nontender to palpation. Bowel sounds present. No organomegaly. Extremities: No clubbing, cyanosis, or edema. Peripheral pulses present in both legs. Neurological Examination: The patient is alert and oriented x3. Moves 4 extremities. Laboratory Data: Reviewed. ASSESSMENT AND PLAN: 1. Clostridium difficile colitis. I think this condition is completely resolved. Although I have seen that this Clostridium difficile antigen was positive, I think this infection is really treated completely. She is not having, clinically, any more episodes of diarrhea and she has received 13 days of vancomycin and Dificid so any infection should be treated. Just to double check and see that this patient does not have any infection, we are going to order a Clostridium difficile toxin, which should be negative. In any case, we will continue with vancomycin only and will stop Dificid. 2. Hypothermia. I have seen that the TSH is elevated so we are going to increase the dose of levothyroxine and see if that helps. 3. Leukocytosis, resolved. 4. Hyponatremia. We do not have any labs from today but from yesterday, it was 131. At this point, we will continue to monitor this patient closely. 5. Disposition. The patient is awaiting a rehab bed. We will see what happens tomorrow. cc: Waldo Ross MD
[2019-03-12] MEDS: FLONASE NAS SCH (17:36)
[2019-03-13] MEDS: VANCOCIN PO SCH ×2 (01:11→10:15)
[2019-03-13] MEDS: LOVENOX SUBQ SCH (05:10)
[2019-03-13] MEDS: PRILOSEC PO SCH (06:06)
[2019-03-13 06:34] LABS: BASO# 0.03 X1000 (0.0-0.2); BASO% 0.5 % (0.0-0.8); EOS# 0.13 X1000 (0.0-0.7); HEMATOCRIT 35.1 % (37.0-47.0); HEMOGLOBIN 11.1 g/dL (12.0-16.0); IMM GRAN% 4.6 % (0.0-0.5); LYMPH# 0.77 X1000 (1.2-3.4); LYMPH% 11.7 % (20.5-51.1); MCHC 31.6 g/dL (33-37); MCV 88.4 FL (81-99); MONO# 0.66 X1000 (0.11-0.59); MPV 9.1 FL (7.4-10.4); NEUT# 4.69 X1000 (1.4-6.5); NEUT% 71.2 % (42.2-75.2); PLT 510 X1000 (130-400); RBC 3.97 XMIL (4.2-5.4); RDW 15.5 % (11.5-14.5); WBC 6.58 X1000 (4.8-10.8)
[2019-03-13 06:49] LABS: AGAP 7; ALBUMIN 3.5 g/dL (3.5-5.0); BUN 7 mg/dL (8-22); CALCIUM 9.4 mg/dL (8.8-10.2); CHLORIDE 94 mmol/L (98-107); COSMO 263; CREATININE 0.2 mg/dL (0.5-0.9); ESTIMATED GFR > 60; GLUCOSE 83 mg/dL (70-104); PHOSPHORUS 3.7 mg/dL (2.7-4.5); POTASSIUM 4.3 mmol/L (3.5-5.1); SODIUM 133 mmol/L (136-145); TCO2 33 mmol/L (25-35)
[2019-03-13] MEDS ORDERED: SYNTHROID PO SCH (07:00)
[2019-03-13 07:52] LABS: BANDS 5 % (0-1); EOS 1 % (1-10); LYMPHS 7 % (21-51); MONO 2 % (1-9); SEGS 83 % (42-75)
[2019-03-13 07:55] LABS: LARGE PLATELETS OCCASIONAL
[2019-03-13] MEDS: FLONASE NAS SCH (10:15)
--- NOTE | 2019-03-13 12:22 | PROGRESS NOTE ---
DATE: 03/13/2019 SUBJECTIVE: The patient reports not having any more diarrhea. She is still having low temperature, she had 95.3 rectal. OBJECTIVE: Vital Signs: Temperature 96.8 degrees, heart rate 64, respiratory rate 16, blood pressure 139/69, O2 saturation 97% on room air. General: This is an 88-year-old female, lying in bed in no acute distress. Cardiovascular: S1 and S2 heard. No murmurs, gallops, or rubs. Regular rate and rhythm. Respiratory: Clear bilaterally to auscultation. No work of breathing or using accessory muscles. Abdomen: Soft, nontender to palpation. Bowel sounds present. No organomegaly. Extremities: No clubbing, cyanosis, or edema. Peripheral pulses present in both legs. Neurological: The patient is alert and oriented x3. Moves all 4 extremities. LABORATORY DATA: Reviewed. ASSESSMENT AND PLAN: 1. Clostridium difficile colitis. Clinically, I think this condition is completely resolved because she does not have any more episodes of diarrhea. We had checked Clostridium difficile [facility]. We do not know if that was antigen or toxin. In any case, I am repeating the test today, antigen and toxin for Clostridium difficile again, and see if that is negative or not. In any case, we have decided to stop vancomycin, today is day #14 without medication. I think she has been completely treated. 2. Hypothermia. I think that could be related to hypothyroidism with TSH elevated. I think at this point, we are going to increase the dose of levothyroxine to 100 mcg by mouth daily, and will go from there. 3. Hyponatremia, resolved. 4. Disposition. At this point, we are awaiting a rehab bed. The patient's family wanted to send this patient to [facility]. They do not have any private bed, so in case these tests return negative, I think this patient can be discharged either today or tomorrow. cc: Waldo Ross MD [facility]
[2019-03-14] MEDS: LOVENOX SUBQ SCH (05:41)
[2019-03-14] MEDS: SYNTHROID PO SCH (06:13)
[2019-03-14] MEDS: PRILOSEC PO SCH (06:13)
[2019-03-14 07:25] LABS: AGAP 7; ALBUMIN 3.5 g/dL (3.5-5.0); BUN 7 mg/dL (8-22); CALCIUM 8.7 mg/dL (8.8-10.2); CHLORIDE 94 mmol/L (98-107); COSMO 263; CREATININE 0.2 mg/dL (0.5-0.9); ESTIMATED GFR > 60; GLUCOSE 82 mg/dL (70-104); POTASSIUM 4.1 mmol/L (3.5-5.1); SODIUM 133 mmol/L (136-145); TCO2 32 mmol/L (25-35)
[2019-03-14] MEDS: FLONASE NAS SCH (08:38)
--- NOTE | 2019-03-14 13:19 | PROGRESS NOTE ---
DATE: 03/14/2019 SUBJECTIVE: The patient reports that temperature is getting slightly better. No more diarrhea noted in the last 2 to 3 days. OBJECTIVE: Vital Signs: Temperature 97.5 degrees, heart rate 67, respiratory rate 18, blood pressure 131/75, O2 saturation 100% 2 L nasal cannula. General: This is a 89-year-old female, lying in bed in no acute distress. Cardiovascular: S1, S2 heard. No murmurs, gallops, or rubs. Regular rate and rhythm. Respiratory: Clear bilaterally to auscultation. No work of breathing or using accessory muscles. Abdomen: Soft. Nontender to palpation. Bowel sounds present. No organomegaly. Extremities: No clubbing, cyanosis, or edema. Peripheral pulses present in both legs. Neurological: The patient is alert and oriented x3. Moves all 4 extremities. LABORATORY DATA: Reviewed. ASSESSMENT AND PLAN: 1. Clostridium difficile colitis. Clinically, this patient has this condition completely resolved. She has received so far, 13 days of vancomycin and Dificid. The patient is no longer having any more episodes of diarrhea. The patient's Clostridium difficile toxin returned negative yesterday, so this condition is completely resolved, and she is not going to receive anymore antibiotics for this. 2. Hypothermia. I think it is getting better and it was related to her elevated TSH. Actually, after we have made a change to her current levothyroxine, temperature is getting better. Will continue to monitor. 3. Hyponatremia, resolved. 4. Disposition. At this point, we are awaiting pre-approval from her insurance company in order to send this patient to rehab facility. cc: Waldo Ross MD [facility]
[2019-03-15] MEDS: SYNTHROID PO SCH (06:14)
[2019-03-15] MEDS: PRILOSEC PO SCH (06:14)
[2019-03-15] MEDS: LOVENOX SUBQ SCH (06:14)
--- NOTE | 2019-03-15 11:38 | DISCHARGE SUMMARY ---
ADMISSION DATE: 02/27/2019 DISCHARGE DATE: 03/15/2019 ADMISSION DIAGNOSES: 1. Septic shock. 2. Hypothermia. 3. Hypotension. 4. Diarrhea. DISCHARGE DIAGNOSES: 1. Clostridium difficile colitis. 2. Hypothermia. 3. Hyponatremia. 4. 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 5. Adult failure to thrive with generalized weakness. 6. Acute hypercapnic respiratory failure, resolved. 7. Hypoventilation. 8. Hypothyroidism, more prominent, but improved with changes to Synthroid. CONSULTATIONS: Physical therapy, occupational therapy, neonatal social worker, case management. SURGERIES/PROCEDURES: None. HOSPITAL COURSE: Ms. Pricila Melo is an 88-year-old female, who presented to [facility] ER via EMS with complaints of abdominal cramping, diarrhea, nausea and weakness. Apparently, she had also been on Levaquin prior to coming to the hospital. 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 She was hypothermic and hypotensive leukocytosis, so essentially with septic shock. She was treated for sepsis protocol. Given her history of type of congestive heart failure, the fluid boluses were minimal. She had UA that was negative, chest x-ray that was negative. An abdominal pelvic CT with IV and p.o. contrast was ordered. She was transferred to the ICU for further management. The CT showed colitis, appeared to be largely confined to the left colon. Actually a stool sample was sent with other testing, but the C differential on the was positive for the toxin and then positive for the antigen on the . So, she received at least 13 days of oral vancomycin and Dificid, and was requiring no longer treatment as the diarrhea spells resolved completely. Apparently had a negative test on the . Her hypothermia reveals she had quite an elevated TSH, and so changes were made to her Synthroid and her temperature improved. She is going to be discharged to [facility]. DISCHARGE VITAL SIGNS: Temperature 97.5 degrees, heart rate 58, respiratory rate 16, blood pressure 112/70, O2 saturation 100% on room air. DISCHARGE LAB DATA: White blood cells 6000, hemoglobin 11, hematocrit 35, platelet count is 510. Sodium 133, potassium 4.1, BUN 7, creatinine 0.2, glucose 82, calcium 8.7, phosphorus is 4.0, albumin 3.5. MICROBIOLOGY: Revealed the C diff toxin positive on the , negative on the , and then on the the antigen was positive. Other micro: The ova and parasite and Trichomonas is negative. No white blood cells in the stool, no Salmonella, Shigella, Campylobacter or E coli is in the stool. Blood cultures on the were negative. PERTINENT IMAGING: Chest x-ray on admission: No evidence of acute disease. Abdominal pelvic CT showed colitis is largely confined to the left colon. On the , chest x-ray essentially stable chest. EKG: Sinus rhythm, rate 71, QTc 465. DISCHARGE DIET: GI soft with Ensure daily with lunch. DISCHARGE ACTIVITY: Primarily with physical therapy and occupational therapy, as she is essentially quadriplegic secondary to the polio in the past. DISCHARGE MEDICATIONS: 1. Menthol zinc oxide ointment nightly. 2. Lasix 20 mg p.o. daily. 3. Linzess 145 mcg p.o. daily. 4. Potassium chloride 20 mEq p.o. daily. 5. Bacillus 1 capsule p.o. daily for 5 days. 6. Lisinopril/hydrochlorothiazide 1 tablet p.o. p.r.n. for blood pressure greater than 140/90. 7. Acyclovir topical 4 times a day. 8. Albuterol/Atrovent every 4 hours. 9. Flonase 1 spray intranasally daily. 10. Synthroid 100 mcg p.o. daily. PHYSICIAN FOLLOWUPS: None. DISCHARGE INSTRUCTIONS: Will be per rehab facility, but take medications as prescribed and report any recurring fevers or spells of diarrhea. DISCHARGE DISPOSITION: [facility] [place]. Dictated by HEATHER Irvin for Waldo Ross MD Addendum: Patient seen and examined by myself. Agree with HEATHER note. It reflects my assessment and plan. Patient is being discharged in stable condition. She is going to rehab facility. cc: HEATHER Irvin MD [facility]
[2019-03-15 11:52] VITALS: BP 126/73
== END 2019-03-15 12:59 | DRG 871 ==
LOC: P.ED 10:00 → SUATTDRO 16:41 → P.ICU 16:41 → P.MEDSURG 03-06 10:34
PROVIDERS: ATTEND Internal Medicine